=== PATIENT | female | born 1975 | race Caucasian/White ===

== ENCOUNTER 2016-10-20 06:35 | Day surgery (SDC) | payer OTHER ==
[2016-10-20] MEDS ORDERED: LIDO/EPI 1% **Not for Epidural 20 ML MDV ONE (06:56)
[2016-10-20] MEDS ORDERED: LR 1,000 ML IV ONE (07:54)
[2016-10-20] MEDS ORDERED: LIDOCAINE 1% 5 ML SDV ID PRN (07:54)
[2016-10-20] MEDS ORDERED: fentaNYL 100 MCG/2 ML INJ ONE ×2 (08:04→09:14)
[2016-10-20] MEDS ORDERED: SUCCINYLCHOLINE CHLORIDE*ANESTHESIA ONLY*200 MG/10 ML SYR IVP ONE (08:05)
[2016-10-20] MEDS ORDERED: KETOROLAC 30 MG/1 ML SDV ONE (08:05)
[2016-10-20] MEDS ORDERED: LIDOCAINE 2% 5 ML SDV ONE (08:05)
[2016-10-20] MEDS ORDERED: ONDANSETRON 4 MG/2 ML VIAL ONE (08:05)
[2016-10-20] MEDS ORDERED: DEXAMETHASONE 4 MG/ML VIAL ONE ×2 (08:05)
[2016-10-20] MEDS ORDERED: PROPOFOL/EMULSION 500 MG/50 ML BOTTLE IV ONE (08:05)
[2016-10-20] MEDS ORDERED: MIDAZOLAM 2 MG/2 ML VIAL ONE (08:17)
[2016-10-20] MEDS ORDERED: HYDROCODONE/APAP 5/325 TAB ONE (10:24)
--- NOTE | 2016-10-20 19:18 | GOP ---
[f rep st] OPERATIVE REPORT DATE OF OPERATION: SURGEON: Janice Salguero MD ANESTHESIA: Philip Nguyen MD. General with LMA. PREOPERATIVE DIAGNOSIS: 1. Dysfunctional uterine bleeding. 2. Symptomatic polyps. POSTOPERATIVE DIAGNOSIS: 1. Dysfunctional uterine bleeding. 2. Symptomatic polyps. PROCEDURE PERFORMED: Hysteroscopic polypectomy with D and C, using hysteroscope morcellator. FINDINGS: Two distinct polyps with thick endometrial tissue and normal tubal ostia. ESTIMATED BLOOD LOSS: 50 cc. INDICATIONS: Patient is a 41-year-old, P0, who is using nothing for control. Just finished h er menstrual cycle. Has known history of irregular spotting. Ultrasound sonohysterogram shows 2 di stinct uterine polyps and thick endometrial tissue. Patient desires definitive treatment. DESCRIPTION OF PROCEDURE: With informed consent signed, patient taken to the operating room and vinh andreas under general anesthesia, placed in the low dorsal lithotomy position. Bladder previously empti ed. The tenaculum placed on the anterior of the cervix and cervix dilated up to 9 mm. With placing the 9 mm dilator, the tenaculum avulsed off the cervix so it had to be reapplied both anteriorly an d then posteriorly. Hemostasis was noted with this. Once the cervix was adequately dilated, the hy steroscope placed into the uterine cavity and findings as noted above. The [employer] rotary blade morcellator using the rotary blade placed into the hysteroscope and resection of all the tissu e done including the thick endometrial tissue though a D and C-like procedure was done removing all tissue. Hemostasis was noted. The morcellator and hysteroscope removed. Inspection of the cervix showed 2 lacerated areas, but they were hemostatic and should heal well. No active bleeding noted. The net fluid deficit was 70 cc. COMPLICATIONS: None. /[id number]/MODL
== END 2016-10-20 11:40 | disposition home or self-care (01) ==
LOC: FSGY 06:35
PROVIDERS: ATTEND Obstetrics & Gynecology Gynecology
DX: N84.0 Polyp of corpus uteri (principal); N93.8 Other specified abnormal uterine and vaginal bleeding
CPT/HCPCS: 58558; C1782; J0330; J1100; J1885; J2250; J2405; J2704; J3010

== ENCOUNTER → 2018-09-13 | Outpatient (CLI) | payer OTHER | LOC: FIMAGING 14:07 | PROVIDERS: ATTEND Physician Assistant Medical | DX: N63.23 Unspecified lump in the left breast, lower outer quadrant (principal); N63.10 Unspecified lump in the right breast, unspecified quadrant ==

== ENCOUNTER → 2018-09-14 | Outpatient (CLI) | payer OTHER ==
[~2018-09-14] MED LIST: BUPIVACAINE 0.5% 30 ML SDV ONE; LIDOCAINE 1% 300 MG/30 ML SDV ONE
== END ==
LOC: FIMAGING 14:04
PROVIDERS: ATTEND Physician Assistant Medical
PROC: 0HBV3ZX Excision of Bilateral Breast, Percutaneous Approach, Diagnostic (ICD-10-PCS; principal; 2018-09-14)
DX: D24.2 Benign neoplasm of left breast (principal); N60.11 Diffuse cystic mastopathy of right breast